=== PATIENT | male | born 1985 | race Caucasian/White ===

== ENCOUNTER 2021-02-16 10:04 | Outpatient (CLI) | payer BC, SELFPAY ==
[2021-02-16 10:19] VITALS: BP 140/84; PULSE 71; RESP 18; TEMP 36.6; O2SAT 98; BMI 27.7
[2021-02-16 12:06] VITALS: BP 129/82; PULSE 66; RESP 18; TEMP 36.5; O2SAT 97
--- NOTE | 2021-02-25 14:31 | DCPLANNER ---
manager sourcing had message that patient received the monoclonal antibody infusion. manager sourcing called phone number [phone] to check on patient after receiving the infusion. manager sourcing was unable to speak with patient at this time, and unable to leave a voicemail for patient.
== END 2021-02-16 10:05 | disposition home or self-care (01) ==
LOC: OPS 10:09
PROVIDERS: Visit Provider Nurse Practitioner
DX: U07.1 COVID-19 (principal)
CPT/HCPCS: 96365

== ENCOUNTER 2021-05-10 | Outpatient (CLI) | payer BC, SELFPAY ==
[2021-05-10 10:30] LABS: D Dimer <= 0.27 ug/mIFEU (0-0.59)
== END 2021-05-10 00:01 | disposition home or self-care (01) ==
LOC: LAB 11-07 13:12
PROVIDERS: Visit Provider Physician Assistant
DX: R06.02 Shortness of breath (principal)
CPT/HCPCS: 85378

== ENCOUNTER 2024-12-07 12:23 | Emergency (ER) | payer OTHER, SELFPAY ==
[2024-12-07 12:56] VITALS: BP 119/70; PULSE 63; RESP 18; TEMP 36.4; O2SAT 98; BMI 26.4
--- NOTE | 2024-12-07 13:47 | XRR_ITS ---
PROCEDURE INFORMATION: Exam: XR Lumbosacral Spine Exam date and time: 12/07/2024 2:04 PM Age: 39 years old Clinical indication: Low back pain; Lower back pain; No known injury TECHNIQUE: Imaging protocol: Radiologic exam of the lumbosacral spine. Views: 2 or 3 views. COMPARISON: No relevant prior studies available. FINDINGS: Bones/joints: There is gentle dextroconvex curvature of the mid to lower lumbar spine. No significant subluxation. No acute fracture is detected. There is mild diffuse osteopenia. Disc spaces appear preserved. Soft tissues: Unremarkable. Gastrointestinal tract: There is a moderate amount of fecal material and air throughout the colon. XR/XR lumbar spine 2-3V* [id number] IMPRESSION: 1. Gentle dextroconvex curvature of the mid to lower lumbar spine. 2. Mild diffuse osteopenia. 3. If there is clinical concern for disc herniation or nerve root impingement, MRI may be helpful for further evaluation.
--- NOTE | 2024-12-07 13:49 | ED_ITS ---
HPI - Back Pain/Injury General: Chief Complaint: Back Pain/Injury Stated Complaint: low back pain Time Seen by Provider: 12/07/24 13:45 Source: patient Mode of arrival: ambulatory Limitations: no limitations History of Present Illness: 39-year-old male states been having back pain since yesterday states that sharp pain in his right lower back states it is much worse with movement he has been able to ambulate states is quite painful denies any bowel or bladder incontinence denies any fevers Associated symptoms: Deny abdominal pain, chills, fever(s), nausea or vomiting Related Data Previous Rx's ?Medication ?Instructions ?Recorded hydrocodone 5 mg-acetaminophen 325 1 tab PO Q6H PRN pa in #14 tabs 12/07/24 mg tablet methocarbamol 750 mg tablet 750 mg PO Q6H PRN spasms # 20 tabs 12/07/24 naproxen 500 mg tablet (Naprosyn) 500 mg PO BID PRN pa in #20 tabs 12/07/24 Allergies Allergy/AdvReac Type Severity Reaction Status Date / Time No Known Allergies Allergy Verified 05/03/21 11:34 Review of Systems Const: Denies: fever(s), chills, body aches or change in appetite ENMT: Denies: throat pain or dental pain Card: Denies: chest pain Resp: Denies: dyspnea GI: Denies: abdominal pain, nausea, vomiting or diarrhea Musc: Reports: back pain; Denies: neck pain Skin/Breast: Denies: rash Neuro: Denies: headache(s) PFS ED PFSH: Social History Smoking and tobacco/nicotine status: former use of tobacco/nicotine Physical Exam Const: COMMON NORMALS: no acute distress, patient oriented x3 and healthy appearing HENMT: COMMON NORMALS: normocephalic and atraumatic HEAD & SCALP: normocephalic and atraumatic Neck/C-Spine: COMMON NORMALS: full ROM and supple Chest: COMMONS NORMALS: normal inspection of the chest Resp: COMMON NORMALS: normal respiratory effort Cardio: COMMON NORMALS: regular rate RATE: regular rate Back/Pelvis: OTHER: Tenderness over right lower spine no midline tenderness no saddle anesthesia Extremity: COMMON NORMALS: normal to inspection and full ROM Neuro: COMMON NORMALS: patient oriented x3, moves all extremities and no focal motor deficits Psych: COMMON NORMALS: mental status grossly normal, Normal thought process present and cooperative THOUGHT PROCESS: Normal thought process present Skin: COMMON NORMALS: no rashes or lesions noted and no wounds GENERAL SKIN EXAM: no rashes or lesions noted Course Vital Signs: Vital signs: Vital Signs Temperature 97.6 F 12/07/24 12:56 Pulse Rate 60 12/07/24 13:58 Respiratory Rate 18 12/07/24 12:56 Blood Pressure 137/72 12/07/24 13:58 Pulse Oximetry 99 12/07/24 13:58 Oxygen Delivery Me thod Room Air 12/07/24 13:58 MDM - Back Pain/Injury Medical Decision Making Patient presents here with low back pain x-ray shows no fractures he has no signs of cord compression or epidural abscess he stable for discharge we will prescribe him pain meds we will get him follow-up with spine surgery he is return if worsening. Medical Records I reviewed the patient's medical records. XR interpretation done by ED provider, pending radiology final review ED provider radiology interpretation(s): xr lumbar spine: no acute abnormality Discharge Plan Discharge Patient Disposition: Home Clinical Impression: Low back pain Condition: Stable Prescriptions: New methocarbamol 750 mg tablet 750 mg PO Q6H PRN (Reason: spasms) Qty: 20 0RF naproxen [Naprosyn] 500 mg tablet 500 mg PO BID PRN (Reason: pain) Qty: 20 0RF hydrocodone-acetaminophen 5-325 mg tablet 1 tab PO Q6H PRN (Reason: pain) Qty: 14 0RF Discharge Orders: Discharge ED (Routine); Ordered 12/07/24 Ordered By: Aristeo Diaz Discharge Diet: Advance as tolerated Discharge Activity: Resume usual activity Patient Instructions: Acute Low Back Pain (ED) Print Language: Bhutanese Coding Level of Care Code ED Complex Care Nurse Practitioner for Jovita Ambrose
[2024-12-07] MEDS: methocarbamol 750 mg Tablet 1500 MG PO (13:52)
[2024-12-07] MEDS: HYDROcodone-acetaminophen 5-325 mg Tablet 1 TAB PO (13:52)
[2024-12-07] MEDS: ketorolac 60 mg/2 mL INJ IM (13:53)
[2024-12-07] MEDS: dexamethasone 10 mg/mL INJ IM (13:53)
[2024-12-07 13:58] VITALS: BP 137/72; PULSE 60; O2SAT 99
[2024-12-07 15:08] VITALS: BP 126/77; PULSE 67; O2SAT 98
--- NOTE | 2024-12-08 07:34 | DCPLANNER ---
messaged ortho for er f/u
== END 2024-12-07 15:11 | disposition home or self-care (01) ==
PROVIDERS: Emergency Provider Emergency Medicine
DX: M54.50 Low back pain, unspecified (principal); Z87.891 Personal history of nicotine dependence
CPT/HCPCS: 72100; 96372; 99284; J1100; J1885; J9999